=== PATIENT | female | born 1985 | race American Indian/Alaskan Native ===

== ENCOUNTER 2018-10-13 12:30 | Inpatient (IN) | payer MEDICAID ==
[2018-10-13] MEDS ORDERED: MINERAL OIL PO PRN (13:10)
[2018-10-13] MEDS ORDERED: XYLOCAINE 2% INFILTRATI ONE ×2 (13:10→19:01)
[2018-10-13] MEDS ORDERED: BRETHINE SUB-Q PRN (13:10)
[2018-10-13] MEDS ORDERED: BRETHINE IVP PRN (13:10)
[2018-10-13] MEDS ORDERED: NARCAN 0.4 MG/1 ML IV PRN (13:10)
[2018-10-13] MEDS ORDERED: STADOL IV PRN (13:10)
[2018-10-13] MEDS ORDERED: ZOFRAN IV PRN (13:10)
[2018-10-13] MEDS ORDERED: LACTATED RINGERS 1,000 ML ONE (13:12)
--- NOTE | 2018-10-13 13:17 | History and Physical Report ---
History of Present Illness Date of examination: 10/13/18 Date of admission: 10/13/2018 Chief complaint: Contractions and vaginal spotting History of present illness: Late entry to care; co-managed with [facility] due to late care and family hx of cardiac defects. Past History Past Medical History: no pertinent history Past Surgical History: no surgical history Family/Genetic History: diabetes, heart disease, hypertension Social history: no significant social history, - Obstetrical History Expected Date of Delivery: 10/13/18 Actual Gestation: 40 Week(s) 0 Day(s) : 6 Para: 4 Hx # Term Pregnancies: 3 Spontaneous Abortions: 1 Number of Living Children: 4 #1 Infant Gender: Male year: 2,009 Birthweight: 2.835 kg Method of Delivery: Vaginal Gestational age at delivery: 40 Complications: other (preeclampsia) #2 Gender: Male year: 2,[birth year] Birthweight: 3.232 kg Method of Delivery: Vaginal Gestational age at delivery: 41 #3 Gender: Female year: 2,014 Birthweight: 2.892 kg Method of Delivery: Vaginal Gestational age at delivery: 39 #4 Gender: Male year: 2,016 Birthweight: 2.92 kg Method of Delivery: Vaginal Gestational age at delivery: 32 Complications: other (heart murmur) Medications and Allergies Allergies Allergy/AdvReac Type Severity Reaction Status Date / Time No Known Allergies Allergy Unverified 06/29/16 18:16 Home Medications Medication Instructions Recorded Confirmed Last Taken Type HYDROcodone/APAP 5-325 [[place] 1 each PO Q6HR PRN #30 tablet 06/30/16 Unknown Rx 5/325] Ibuprofen [Motrin] 800 mg PO Q8HR PRN #60 tablet 06/30/16 Unknown Rx - Vital Signs Vital signs: Vital Signs Temp Pulse Resp BP 99.2 F 98 H 18 11164 10/13/18 12:48 10/13/18 12:48 10/13/18 12:48 10/13/18 12:48 Temp Pulse Resp BP Pulse Ox 99.2 F 98 H 18 11164 10/13/18 12:48 10/13/18 12:48 10/13/18 12:48 10/13/18 12:48 - Physical Exam Breasts: Positive: normal Cardiovascular: Regular rate Lungs: Positive: Clear to auscultation, Normal air movement Abdomen: Positive: normal appearance, soft, normal bowel sounds Genitourinary (Female): Positive: normal external genitalia, normal perenium Vagina: Positive: normal moisture Uterus: Positive: enlarged Anus/Rectum: Positive: normal perianal skin Extremities: Positive: normal Results All other labs normal. Assessment and Plan A: IUP @ 40 Weeks Early labor Category I Tracing GBS Negative P: Admit to L&D per Routine Orders Pitocin Augmentation
[2018-10-13 13:58] LABS: Hematocrit 34.1 % (30.3-42.9); Hemoglobin 11.2 gm/dl (10.1-14.3); Mean Corpuscular HGB Conc 33 % (30-34); Mean Corpuscular Volume 78 fl (79-97); Platelet Count 316 K/mm3 (140-440); Red Blood Count 4.37 M/mm3 (3.65-5.03); Red Cell Distribution Width 19.3 % (13.2-15.2)
[2018-10-13] MEDS ORDERED: LACTATED RINGERS 1,000 ML IV SCH (14:00)
[2018-10-13] MEDS ORDERED: PITOCin/NS 30 UNIT/500ML 30 UNITS/500 ML BAG IV SCH (14:00)
[2018-10-13] MEDS ORDERED: PITOCin/NS 20 UNIT/1000ML DRIP 20 UNITS/1,000 ML BAG IV SCH (15:00)
--- NOTE | 2018-10-13 18:20 | Progress Note ---
Assessment and Plan A: IUP @ 40 Weeks Early labor Category I Tracing GBS Negative P: Continue Pitocin Augmentation AROM Subjective - Subjective Date of service: 10/13/18 Interval history: Late entry to care; co-managed with [facility] due to late care and family hx of cardiac defects. Patient reports: movement normal, contractions Objective - Vital Signs Vital Signs: Vital Signs - 12hr 10/13/18 10/13/18 10/13/18 12:48 16:40 18:05 Temperature 99.2 F Pulse Rate 98 H 77 83 Respiratory 18 Rate Blood Pressure 111/64 123/72 137/84 - Exam Breasts: normal Cardiovascular: Regular rate Lungs: Clear to auscultation, Normal air movement Abdomen: Present: normal appearance, soft, normal bowel sounds Uterus: Present: normal, firm, fundal height above umbilicus FHR: category 1 Uterine Contraction Monitor Mode: External Cervical Dilatation: 5 (Moderate amount of clear fluid upon AROM at 1813) Cervical Effacement Percentage: 70 station: -2 Uterine Contraction Frequency (min): 4 Uterine Contraction Pattern: Regular Uterine Tone Measurement Phase: Resting Uterine Contraction Intensity: Mild Extremities: normal - Labs Labs: Abnormal Labs 10/13/18 13:25 MCV 78 L MCH 26 L RDW 19.3 H Laboratory Results - last 24 hr 10/13/18 10/13/18 13:25 13:25 WBC 6.1 RBC 4.37 Hgb 11.2 Hct 34.1 MCV 78 L MCH 26 L MCHC 33 RDW 19.3 H Plt Count 316 Blood Type B POSITIVE Antibody Screen Negative
[2018-10-13] MEDS ORDERED: CYTOTEC ONE (18:59)
[2018-10-13] MEDS ORDERED: NORCO 5/325 PO PRN (19:17)
[2018-10-13] MEDS ORDERED: BENADRYL PO PRN (19:17)
--- NOTE | 2018-10-13 19:30 | Procedure Note ---
OB Delivery Note - Delivery Date of Delivery: 10/13/18 (1853) Surgeon: SIL MAZARIEGOS Estimated blood loss: other (250) - Vaginal Delivery presentation: vertex Delivery position: OA Intrapartum events: none Delivery induction: none Delivery augmentation: rupture of membranes, pitocin Delivery monitor: external FHT, external uterine Route of delivery: Delivery placenta: spontaneous Delivery cord: nuchal cord, 3 umbilical vessels Episiotomy: none Delivery laceration: 1st degree Delivery repair: vicryl Anesthesia: local Delivery comments: of a live 6'8 female infant over a 1st degree perineal laceration under IV pain control with Apgars of 8 and 9 at 1853 on 10/13/2018. Nuchal cord x 1 ea sily manually reduced on the perineum prior to delivery of the anterior shoulder. directly to maternal abd/chest, skin to skin contact. First degree laceration repaired with 2-[address]-1 under 2% local Lidociane. Spontaneous delivery of placenta complete and intact with [place] side presenting at 1857. Fundus is firm and midline located 4 below the U. Lochia is scant. Delayed cord clamping and cutting; Cord cut by the Father of the Baby. Placenta discarded. - Infant A Infant Gender: Female (6'8)
[2018-10-13] MEDS ORDERED: SODIUM CHLORIDE FLUSH SYRINGE 10 ML IV NR (20:00)
[2018-10-13] MEDS ORDERED: TUCKS PAD TP PRN (23:44)
[2018-10-14] MEDS: IBUPROFEN PO SCH ×3 (02:14→17:54)
[2018-10-14 07:49] LABS: Hemoglobin 10.3 gm/dl (10.1-14.3)
--- NOTE | 2018-10-14 10:48 | Progress Note ---
Assessment and Plan A: PPD#1 Stable P: Follow Routine Orders Encourage increased ambulation Discharge this PM pending PEDS Subjective - Subjective Date of service: 10/14/18 Principal diagnosis: PPD#1 s/p Interval history: See H&P and delivery note Patient reports: appetite normal, voiding normally, pain well controlled, flatus, ambulating normally, no bowel movement [place]: doing well Objective - Vital Signs Latest vital signs: Vital Signs Temp Pulse Resp BP Pulse Ox 10/14/18 08:23 98.8 F 80 18 113/63 98 10/14/18 03:51 98.0 F 85 18 114/70 96 10/14/18 02:14 16 10/14/18 00:19 98.4 F 81 18 117/75 96 10/13/18 21:29 97.5 F L 73 16 117/75 98 10/13/18 20:05 69 128/76 10/13/18 19:50 73 125/64 10/13/18 19:35 84 118/60 10/13/18 19:20 93 H 121/63 10/13/18 19:05 86 131/68 10/13/18 18:50 75 141/83 10/13/18 18:35 82 145/88 10/13/18 18:20 86 135/83 10/13/18 18:05 83 137/84 10/13/18 16:40 77 123/72 10/13/18 12:48 99.2 F 98 H 18 111/64 Intake and Output 10/13/18 10/14/18 10/14/18 23:59 07:59 15:59 Output Total 800 Balance -800 Output: Urine 800 Void 800 Other: Total, Output Amount 800 # Voids Void 1 Estimated Blood Loss 250 - Exam Breasts: Present: normal Cardiovascular: Present: Regular rate, Normal S1, Normal S2, No murmurs Lungs: Present: Clear to auscultation, Normal air movement Abdomen: Present: normal appearance, soft, normal bowel sounds. Absent: distention Vulva: both: normal, laceration/episiotomy (1st degree; well approximated) Uterus: Present: firm, fundal height below umbilicus (-1) Extremities: Present: normal - Labs Labs: Abnormal lab results 10/13/18 Range/Units 13:25 MCV 78 L (79-97) fl MCH 26 L (28-32) pg RDW 19.3 H (13.2-15.2) %
--- NOTE | 2018-10-14 10:50 | Discharge Summary ---
Providers - Providers Date of Admission: 10/13/18 12:31 Date of discharge: 10/14/18 Attending physician: MEENU MACE MD Primary care physician: MEENU MACE MD Hospitalization Reason for admission: active labor Delivery: Procedure details: See delivery note Episiotomy: none Laceration: 1st degree (well approximated) complications: none Discharge diagnosis: IUP at term delivered baby: female Condition at discharge: Good Disposition: DC-01 TO HOME OR SELFCARE Plan - Provider Discharge Summary Activity: routine, no sex for 6 weeks, no heavy lifting 4 weeks, no strenuous exercise Diet: routine Instructions: routine Additional instructions: [] Smoking cessation referral if applicable(refer to patient education folder for contact #) [] Refer to [facility] Booklet Call your doctor immediately for: * Fever > 100.5 * Heavy vaginal bleeding ( >1 pad per hour) * Severe persistent headache * Shortness of breath * Reddened, hot, painful area to leg or breast * Drainage or odor from incision. * Keep incision clean and dry at all times and follow doctor's instructions regarding bathing/showering - Follow up plan Follow up: MEENU MACE MD [Primary Care Provider] - 6 Weeks
[2018-10-15] MEDS: IBUPROFEN PO SCH (02:10)
[2018-10-15 12:36] VITALS: BP 120/78
== END 2018-10-15 11:15 | disposition home or self-care (01) | DRG 775 ==
LOC: TRG 12:30 → LD 12:31 → TRG 12:31 → OB 21:43
PROVIDERS: ADMIT Obstetrics & Gynecology; ATTEND Obstetrics & Gynecology
PROC: 10E0XZZ Delivery of Products of Conception, External Approach (ICD-10-PCS; principal; 2018-10-13)
PROC: 0HQ9XZZ Repair Perineum Skin, External Approach (ICD-10-PCS; 2018-10-13)
PROC: 10907ZC Drainage of Amniotic Fluid, Therapeutic from Products of Conception, Via Natural or Artificial Opening (ICD-10-PCS; 2018-10-13)
DX: O69.81X0 Labor and delivery complicated by cord around neck, without compression, not applicable or unspecified (principal); Z3A.40 40 weeks gestation of pregnancy; Z37.0 Single live birth; Z83.3 Family history of diabetes mellitus; Z82.49 Family history of ischemic heart disease and other diseases of the circulatory system; O70.0 First degree perineal laceration during delivery
CPT/HCPCS: 36415; 85014; 85018; 85027; 86592; 86850; 86900; 86901; G0378; J0595; J2590; J7120